=== PATIENT | female | born 1935 | race African-American/Black ===

== ENCOUNTER 2018-02-13 13:08 | Outpatient (CLI) | payer MEDICARE, BC | END 2018-02-13 13:09 | disposition home or self-care (01) | LOC: BICRAD 13:08 | PROVIDERS: ATTEND Internal Medicine | DX: M25.552 Pain in left hip (principal); M54.5 Low back pain; R05 Cough; M16.12 Unilateral primary osteoarthritis, left hip; M47.896 Other spondylosis, lumbar region; M43.16 Spondylolisthesis, lumbar region; R91.8 Other nonspecific abnormal finding of lung field | CPT/HCPCS: 71046; 72100 ==

== ENCOUNTER 2018-02-13 17:57 | Inpatient (IN) | payer MEDICARE, BC ==
[2018-02-13 19:11] LABS: #Eosinphils 0.2 thou/uL (0.0-0.7); #Lymphocytes 1.7 thou/uL (1.20-3.40); #Monocytes 0.5 thou/uL (0.11-0.59); #Neutrophils 6.2 thou/uL (1.40-6.50); %Basophils 0.2 % (0.0-1.0); %Eosinophils 2.3 % (0.0-10.0); %Neutrophils 71.5 % (42.0-75.0); Hemoglobin 10.5 g/dL (12.0-16.0); Mean Corpuscular HGB CONC 33.6 g/dL (32.0-36.0); Mean Corpuscular Hemoglobin 29.9 pg (27.0-31.0); Mean Corpuscular Volume 88.9 fL (78.0-98.0); Mean Platelet Volume 8.3 fL (7.4-10.4); Platelet Count 251 thou/uL (130-400); RBC Distribution Width 13.8 % (11.5-14.5); Red Blood Cell (RBC) Count 3.53 mill/uL (4.20-5.40); White Blood Cell (WBC) Count 8.6 thou/uL (4.8-10.8)
[2018-02-13 19:34] LABS: ALT (SGPT) 19 U/L (8-55); AST (SGOT) 18 U/L (5-34); Albumin 3.2 g/dL (3.4-4.8); Alkaline Phosphatase 66 U/L (40-150); Anion Gap 19 mmol/L (10-20); BUN (Urea Nitrogen) 27 mg/dL (9.8-20.1); Bilirubin, Total 1.1 mg/dL (0.2-1.2); Calc. Creatinine Clearance 0 mL/min (70-130); Calcium 9.5 mg/dL (7.8-10.44); Carbon Dioxide 19 mmol/L (23-31); Chloride 101 mmol/L (98-107); Estimated GFR-MDRD 39; Globulin 3.4 g/dL (2.4-3.5); Glucose 116 mg/dL (83-110); Potassium 3.6 mmol/L (3.5-5.1); Protein, Total 6.6 g/dL (6.0-8.3); Sodium 135 mmol/L (136-145)
[2018-02-13] MEDS ORDERED: cefTRIAXone\\ROCEPHIN 2 GM VIAL ONE (22:37)
[2018-02-13] MEDS ORDERED: Azithromycin 500 MG VIAL ONE (22:37)
--- NOTE | 2018-02-13 23:00 | CT ---
CT ABDOMEN AND PELVIS WITHOUT CONTRAST: 02/13/18 HISTORY: Left lower quadrant pain. FINDINGS: The absence of oral and IV contrast reduces the sensitivity of the exam particularly for evaluation o f solid organs and bowel. There are dependent changes in the lung bases. No free air or free fluid is seen in the abdomen or pe lvis. Calcified gallstones are seen. There are multiple calcified granulomas in the spleen. No calculi are noted in the kidneys, ureters or the urinary bladder. No hydroureteronephrosis is seen . There is a 3.5 cm exophytic low density mass arising from the inferior pole of the left kidney whic h does not meet all CT criteria for a simple cyst. Uterus is present. A normal appearing appendix is noted. No pericolonic inflammatory changes are seen . There are degenerative changes in the spine. Vascular calcifications are present without evidence f or aneurysmal dilatation of the abdominal aorta. IMPRESSION: 1. Cholelithiasis. 2. No CT evidence of urinary tract calculi or obstruction. 3. Calcified granulomas in the spleen. 4. 3.5 cm exophytic left renal mass. This should be evaluated with ultrasound. POS: RUSS
[2018-02-14] MEDS ORDERED: Ondansetron ODT 4 MG TAB SL PRN (01:16)
[2018-02-14] MEDS ORDERED: Ondansetron HCl/PF 4 MG/2 ML Vial IVP PRN ×2 (01:16→07:46)
[2018-02-14] MEDS ORDERED: Zolpidem Tartrate 5 MG TAB PO PRN (07:46)
[2018-02-14] MEDS ORDERED: Mag-Al 1200 mg/1200 mg/30 ML UDCUP PO PRN (07:46)
[2018-02-14] MEDS ORDERED: Senokot 8.6 MG TAB PO PRN (07:46)
[2018-02-14] MEDS ORDERED: Loratadine 10 MG TAB PO PRN (07:46)
[2018-02-14] MEDS ORDERED: HumaLOG 300 UNITS/3 ML VIAL SC PRN ×2 (07:46)
[2018-02-14] MEDS ORDERED: hydrALAZINE 20 MG/ML VIAL SLOW IVP PRN (07:46)
[2018-02-14] MEDS ORDERED: Milk Of Magnesia 30 ML UDCUP PO PRN (07:46)
[2018-02-14] MEDS ORDERED: Diabetic Tussin 200 MG/10 ML UDCUP PO PRN (07:46)
[2018-02-14] MEDS ORDERED: Artificial Tear Sol 15 ML BOT EA EYE PRN (07:46)
[2018-02-14] MEDS ORDERED: Sodium Chloride 0.65% Nasal 44 ML BOT EA NARE PRN (07:46)
[2018-02-14] MEDS ORDERED: Acetaminophen 325 MG TAB PO PRN (07:46)
[2018-02-14] MEDS ORDERED: Eucerin (Mineral Oil/Petrolatum,White) 30 gm Jar TOP PRN (07:46)
[2018-02-14] MEDS ORDERED: Dextrose 5% in Water 1,000 ML IV PRN (07:46)
[2018-02-14] MEDS ORDERED: Chloraseptic Spray 180 ml Bottle PO PRN (07:46)
[2018-02-14] MEDS ORDERED: HYDROcodone/Acetaminophen 5/325 mg Tablet PO PRN (07:46)
[2018-02-14] MEDS ORDERED: Dextrose 50% Abboject 50 ML SYRINGE SLOW IVP PRN (07:46)
[2018-02-14] MEDS ORDERED: Ondansetron ODT 4 MG TAB PO PRN (07:46)
[2018-02-14] MEDS ORDERED: Loperamide HCl 2 MG CAP PO PRN (07:46)
[2018-02-14] MEDS ORDERED: Allopurinol 300 MG TAB PO SCH ×2 (09:00→21:00)
[2018-02-14] MEDS: glipiZIDE 5 MG TAB PO SCH (09:23)
[2018-02-14] MEDS: Carvedilol 3.125 MG TAB PO SCH (09:25)
[2018-02-14] MEDS: metFORMIN 500 MG TAB PO SCH ×2 (09:25→16:56)
[2018-02-14] MEDS: Losartan 25 MG TAB PO SCH (09:26)
[2018-02-14] MEDS: Aspirin 81 mg Enteric Coated Tablet PO SCH (09:26)
[2018-02-14] MEDS: Torsemide 20 MG TAB PO SCH (09:27)
[2018-02-14] MEDS: Enoxaparin Sodium 30 MG/0.3 ML SYRINGE SC SCH (09:28)
[2018-02-14] MEDS: Stress 600 With Zinc 1 TAB PO SCH (09:30)
--- NOTE | 2018-02-14 11:06 | ULT ---
ULTRASOUND RETROPERITONEUM COMPLETE: (RENAL) 02/14/2018 HISTORY: An 82-year-old female with left renal mass. FINDINGS: There is an approximately 3.5 x 3 x 3 cm mass, exophytically protruding inferiorly and posteriorly fr om the lower pole cortex of the left kidney, corresponding to the mass found on the noncontrast CT of 02/13/2018. It has echogenicity very similar to that of adjacent normal renal parenchyma. Although the CT density was relatively low (15 HU), the color Doppler images demonstrate strong blood flow wi thin this mass, indicating that it is a solid rather than a complex cyst. The right kidney measures 10.5 x 5.5 x 5 cm. The left kidney measures 10 x 5.5 x 5.5 cm (not including the exophytic renal mass). No hydronephrosis bilaterally. Unremarkable appearance of urinary bladder. Incidental finding of multiple gallstones. IMPRESSION: 1. Left renal lower pole exophytic mass is a solid neoplasm, probably renal cell carcinoma. 2. Incidental finding of cholelithiasis. CODE T JN R POS: RUSS
[2018-02-14 11:50] VITALS: BMI 41.6
[2018-02-14 14:18] LABS: Bilirubin Negative (Negative); Blood, Urine Negative (Negative); Clarity CLEAR (Clear); Glucose, Urine (Dipstick) Negative (Negative); Leukocyte Trace (Negative); Nitrite Negative (Negative); Protein, Urine (Dipstick) Negative (Neg-Trace); Specific Gravity, Urine 1.004 (1.002-1.036); pH, Urine 6.5 (5.0-9.0)
[2018-02-14 14:20] LABS: Bacteria/HPF None Seen HPF (None Seen); Hyaline Casts/LPF 0-3 HYALINE CAST LPF (0-3 Hyaline); Pathc Cast-AUWi Flag 0.43 (0-2.49); RBC/HPF 0-3 HPF (0-3); Squamous Epithelial 0-3 HPF (0-3); WBC/HPF 0-3 HPF (0-3)
--- NOTE | 2018-02-14 15:23 | HP ---
PRIMARY CARE PHYSICIAN: Silva Espinal M.D. REASON FOR ADMISSION: Pneumonia, renal mass. HISTORY OF PRESENT ILLNESS: This is an 82-year-old female, who presented to emergency room with a co mplaint of generalized weakness. Patient reports that she is having cough for the last several days. She had outpatient basis chest x-ray, which showed pneumonia. The patient also reports intermitten t fever at home. She reports left-sided abdominal discomfort, which is getting worse with coughing. For the last couple of days, patient was also having diarrhea and because of that she got dehydrated , and subsequently, she was feeling extreme fatigue. She denies any sick exposures. She denies any antibiotic exposures. She denies any melena or hematochezia. She denies any UTI symptoms. She micaela es any headache. She denies any sore throat. She denies any upper respiratory infection. In the emergency room, the patient was having vague abdominal discomfort and that is why CT abdomen a nd pelvis was done, which showed left renal mass. Patient's laboratory parameters wer unremarkable. The patient was admitted already from the emergency room. For pneumonia, the patient was started on Rocephin and azithromycin. The patient was still having pain in her left side of the lumbar region. REVIEW OF SYSTEMS: The following complete review of systems was negative, unless otherwise mentioned in the HPI or below: Constitutional: Weight loss or gain, ability to conduct usual activities. Sk in: Rash, itching. Eyes: Double vision, pain. ENT/Mouth: Nose bleeding, neck stiffness, pain, te nderness. Cardiovascular: Palpitations, dyspnea on exertion, orthopnea. Respiratory: Shortness of breath, wheezing, cough, hemoptysis, fever, or night sweats. Gastrointestinal: Poor appetite, abdo cathie pain, heartburn, nausea, vomiting, constipation, or diarrhea. Genitourinary: Urgency, frequen cy, dysuria, nocturia. Musculoskeletal: Pain, swelling. Neurologic/Psychiatric: Anxiety, depressi on. Allergy/Immunologic: Skin rash, bleeding tendency. Please see my HPI for pertinent positive an d negative. All other review of systems reviewed and negative except as mentioned in the HPI. ALLERGIES: LEVOFLOXACIN. CURRENT HOME MEDICATIONS: Allopurinol 300 mg p.o. daily, aspirin 81 mg p.o. daily, Coreg 3.125 mg p. o. daily, vitamin D3 5000 units p.o. daily, folic acid with vitamin B complex 1 tablet p.o. daily, gl ipizide 10 mg daily, fish oil 1 capsule daily, losartan 50 mg p.o. daily, metformin 500 mg p.o. b.i.d ., Zocor 40 mg p.o. at bedtime, torsemide 20 mg p.o. daily. PAST MEDICAL HISTORY: Diabetes, type 2; hypertension; dyslipidemia; gout; obesity. PAST SURGICAL HISTORY: Sebaceous cyst removed from her back, right rotator cuff repair, microdiscect vishal for L5-S1 by Dr. Cervantes, cataract surgery. PAST PSYCHIATRIC HISTORY: Reviewed and negative. SOCIAL HISTORY: Patient lives at home. She is a former smoker; she quit smoking more than 10 years ago. She denies any alcohol or other illicit drug abuse. 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 FAMILY HISTORY: No strong family history of premature coronary artery disease, stroke, or cancer. EMERGENCY ROOM COURSE: Patient has received Rocephin, azithromycin, IV fluid. PHYSICAL EXAMINATION: VITAL SIGNS: On arrival, blood pressure 137/65, pulse 79, respiratory rate 15, temperature 96.0, sat uration 99% on room air, weight 106.1 kilograms. GENERAL: The patient is currently alert, awake, in no obvious acute distress. HEENT: Head: Normocephalic, atraumatic. Eyes: Pupils round, reactive to light. Extraocular muscl e intact. ENT: Oropharynx within normal limits. Moist mucous membranes, no oral lesion, no pharyng eal erythema, no exudate. NECK: Supple, no JVD, no thyromegaly, no carotid bruit. LUNGS: Clear to auscultation without any rhonchi or rales. CARDIAC: S1 and S2 appears regular. No murmur, no gallop, no rub. ABDOMEN: Soft, bowel sounds present, nontender, nondistended. No organomegaly, no mass, no suprapub ic tenderness. Patient has vague discomfort on left lower quadrant. EXTREMITIES: Lower extremities, trace edema noted. Good distal pulsation. SKIN: No skin rash. HEMATOLOGICAL SYSTEM: No lymphadenopathy. PSYCHIATRIC: Normal affect. SIGNIFICANT LABORATORY DATA: CT of the abdomen and pelvis showed cholelithiasis, calcified granuloma in spleen, 3.5 cm exophytic left renal mass. Outpatient chest x-ray showed left upper lobe infiltra tion. CBC: WBC 8.6, hemoglobin 10.5, platelets 251. BMP: Sodium 135, potassium 3.6, chloride 101, carbon dioxide 19, anion gap 19, BUN 27, creatinine 1.56, glucose 116, calcium 9.5. Lactic acid 1.2 . LFT: AST 18, ALT 19, alkaline phosphatase 66, albumin 3.2. Urinalysis: Leukocyte esterase trace . ASSESSMENT AND PLAN: 1. Community-acquired pneumonia. The patient is kept on Rocephin and azithromycin. We will continu e with 2 antibiotic therapy upon discharge. We will consider changing to Omnicef for another 5 days. 2. Left renal mass. Ultrasound of kidney obtained is suspicious for renal cell carcinoma. Urology will be consulted. Urinalysis will be checked. 3. Chronic kidney disease, stage 3. We will monitor renal function and avoid nephrotoxin agent, mos t likely related with diabetic nephropathy. 4. Diabetes, type 2, currently well controlled. Continue glipizide 10 mg daily, metformin 500 mg p. o. b.i.d. 5. Hypertension. Continue Cozaar 50 mg p.o. daily. 6. Dyslipidemia. Continue Zocor 40 mg p.o. at bedtime. 7. Gout. We will continue allopurinol 300 mg p.o. daily. 8. Morbid obesity with BMI 41. Dietary education given. Weight loss education given. Healthy life style measures discussed with the patient. 9. Anemia, normocytic, normochromic. Patient will continue multivitamin therapy upon discharge. 10. Deep venous thrombosis prophylaxis, Lovenox 30 mg subcutaneously daily. 11. Gastrointestinal prophylaxis, Protonix 40 mg p.o. daily. CODE STATUS: The patient is FULL CODE. Patient does not have any surrogate decision maker. Disposition plan based on clinical course. We are expecting patient's stay in hospital more than 2 m idnights. Plan of care discussed with the patient and family member at bedside.
[2018-02-14] MEDS ORDERED: Atorvastatin Calcium 20 MG TAB PO SCH (21:00)
[2018-02-14] MEDS ORDERED: cefTRIAXone\\ROCEPHIN 2 GM in Sodium Chloride 0.9% 100 ML IVPB SCH (23:00)
[2018-02-15] MEDS ORDERED: Azithromycin 500 MG in Sodium Chloride 0.9% 250 ML 250 ML IVPB SCH (00:01)
[2018-02-15 05:12] LABS: ALT (SGPT) 16 U/L (8-55); AST (SGOT) 14 U/L (5-34); Albumin 2.5 g/dL (3.4-4.8); Alkaline Phosphatase 50 U/L (40-150); Anion Gap 14 mmol/L (10-20); BUN (Urea Nitrogen) 25 mg/dL (9.8-20.1); Bilirubin, Total 0.4 mg/dL (0.2-1.2); Calc. Creatinine Clearance 55 mL/min (70-130); Calcium 8.9 mg/dL (7.8-10.44); Carbon Dioxide 23 mmol/L (23-31); Chloride 107 mmol/L (98-107); Estimated GFR-MDRD 45; Globulin 2.8 g/dL (2.4-3.5); Glucose 100 mg/dL (83-110); Potassium 3.6 mmol/L (3.5-5.1); Protein, Total 5.3 g/dL (6.0-8.3); Sodium 140 mmol/L (136-145)
[2018-02-15 07:00] LABS: Band 3 % (5-11); Hemoglobin 9.6 g/dL (12.0-16.0); Lymphocytes 30 % (21-51); MDiff Complete? YES; Mean Corpuscular HGB CONC 34.3 g/dL (32.0-36.0); Mean Corpuscular Hemoglobin 30.1 pg (27.0-31.0); Mean Corpuscular Volume 87.8 fL (78.0-98.0); Mean Platelet Volume 8.3 fL (7.4-10.4); Monocytes 5 % (0-10); Neutrophil 62 % (42-75); Nucleated RBC 2 % (0); Platelet Count 269 thou/uL (130-400); RBC Distribution Width 13.8 % (11.5-14.5); Red Blood Cell (RBC) Count 3.18 mill/uL (4.20-5.40); White Blood Cell (WBC) Count 7.5 thou/uL (4.8-10.8)
[2018-02-15] MEDS: Aspirin 81 mg Enteric Coated Tablet PO SCH (08:57)
[2018-02-15] MEDS: Torsemide 20 MG TAB PO SCH (08:57)
[2018-02-15] MEDS: metFORMIN 500 MG TAB PO SCH (08:57)
[2018-02-15] MEDS: glipiZIDE 5 MG TAB PO SCH (08:57)
[2018-02-15] MEDS: Carvedilol 3.125 MG TAB PO SCH (08:58)
[2018-02-15] MEDS: Stress 600 With Zinc 1 TAB PO SCH (08:59)
[2018-02-15] MEDS: Enoxaparin Sodium 30 MG/0.3 ML SYRINGE SC SCH (09:00)
[2018-02-15 11:04] VITALS: BP 128/75; TEMP 97.2
--- NOTE | 2018-02-15 12:02 | PDOC.PN ---
- Subjective Encounter Start Date: 02/15/18 Encounter Start Time: 08:40 -: old records requested/rev Patient seen and examined. No new complaints. No overnight events - Objective MAR Reviewed: Yes Vital Signs & Weight: Vital Signs (12 hours) Temp Pulse Resp BP Pulse Ox 02/15/18 11:03 97.2 F L 75 16 128/75 96 02/15/18 08:00 97.7 F 61 18 94 L 02/15/18 07:42 97.7 F 61 18 106/69 94 L Weight Admit Weight 235 lb Weight 235 lb Result Diagrams: 02/15/18 04:13 02/15/18 04:13 Additional Labs: Accuchecks 02/15/18 02/15/18 02/14/18 11:02 06:01 20:09 POC Glucose 201 H 85 135 H 02/14/18 16:43 POC Glucose 214 H Phys Exam - Physical Examination Constitutional: NAD HEENT: PERRLA, moist MMs, sclera anicteric Neck: no JVD, supple Respiratory: no wheezing, no rales, no rhonchi Cardiovascular: RRR, no significant murmur, no rub Gastrointestinal: soft, non-tender, no distention, positive bowel sounds Musculoskeletal: no edema, pulses present Neurological: non-focal, normal sensation, moves all 4 limbs Lymphatic: no nodes Psychiatric: normal affect, A&O x 3 Skin: no rash, normal turgor Dx/Plan (1) Community acquired bacterial pneumonia Code(s): J15.9 - UNSPECIFIED BACTERIAL PNEUMONIA Status: Acute (2) Left renal mass Code(s): N28.89 - OTHER SPECIFIED DISORDERS OF KIDNEY AND URETER Status: Acute (3) Anemia, normocytic normochromic Code(s): D64.9 - ANEMIA, UNSPECIFIED Status: Chronic (4) CKD (chronic kidney disease) stage 3, GFR 30-59 ml/min Code(s): N18.3 - CHRONIC KIDNEY DISEASE, STAGE 3 (MODERATE) Status: Chronic (5) Diabetes type 2, controlled Code(s): E11.9 - TYPE 2 DIABETES MELLITUS WITHOUT COMPLICATIONS Status: Chronic (6) Dyslipidemia Code(s): E78.5 - HYPERLIPIDEMIA, UNSPECIFIED Status: Chronic (7) Hypertension Code(s): I10 - ESSENTIAL (PRIMARY) HYPERTENSION Status: Chronic (8) Morbid obesity with BMI of 40.0-44.9, adult Code(s): E66.01 - MORBID (SEVERE) OBESITY DUE TO EXCESS CALORIES; Z68.41 - BODY MASS INDEX (BMI) 40.0-44.9, ADULT Status: Chronic - Plan cont current plan of care, continue antibiotics * continue rocephin and azithromycin * urology evaluated and will need outpt follow up * continue PT * medication reviewed as below * symptomatic treatment * expecting discharge soon. Review of Systems - Review of Systems Eyes: negative: Pain, Vision Change, Conjunctivae Inflammation, Eyelid Inflammation, Redness, Other ENT: negative: Ear Pain, Ear Discharge, Nose Pain, Nose Discharge, Nose Congestion, Mouth Pain, Mouth Swelling, Throat Pain, Throat Swelling, Other Respiratory: negative: Cough, Dry, Shortness of Breath, Hemoptysis, SOB with Excertion, Pleuritic Pain, Sputum, Wheezing Cardiovascular: negative: chest pain, palpitations, orthopnea, paroxysmal nocturnal dyspnea, edema, light headedness, other Gastrointestinal: negative: Nausea, Vomiting, Abdominal Pain, Diarrhea, Constipation, Melena, Hematochezia, Other Genitourinary: negative: Dysuria, Frequency, Incontinence, Hematuria, Retention , Other Musculoskeletal: negative: Neck Pain, Shoulder Pain, Arm Pain, Back Pain, Hand Pain, Leg Pain, Foot Pain, Other Skin: negative: Rash, Lesions, Liu, Bruising, Other - Medications/Allergies Allergies/Adverse Reactions: Allergies Allergy/AdvReac Type Severity Reaction Status Date / Time levofloxacin [From Levaquin] Allergy Verified 02/14/18 01:20 Medications: Current Medications Acetaminophen (Tylenol) 650 mg PO Q4H PRN PRN Reason: Headache/Fever or Pain Hydrocodone Bitart/Acetaminophen (Newell 5/325) 1 tab PO Q4H PRN PRN Reason: Moderate Pain (4-6) Last Admin: 02/15/18 00:33 Dose: 1 tab Al Hydroxide/Mg Hydroxide (Maalox) 30 ml PO Q6H PRN PRN Reason: Heartburn or Indigestion Albuterol/Ipratropium (Duoneb) 3 ml NEB L2PB-LS PRN PRN Reason: SOB &/or Wheezing Allopurinol (Zyloprim) 300 mg PO HS AMANDO Last Admin: 02/14/18 21:29 Dose: 300 mg Artificial Tears (Tears Renewed 15ml Bottle) 0 drop EA EYE PRN PRN PRN Reason: Dry Eyes Aspirin (Ecotrin) 81 mg PO DAILY [facility] Last Admin: 02/15/18 08:57 Dose: 81 mg Atorvastatin Calcium (Lipitor) 20 mg PO [facility] Last Admin: 02/14/18 21:31 Dose: 20 mg Carvedilol (Coreg) 3.125 mg PO DAILY [facility] Last Admin: 02/15/18 08:58 Dose: 3.125 mg Cholecalciferol (Vitamin D3) 5,000 units PO [facility] Last Admin: 02/14/18 21:29 Dose: 5,000 units Dextrose/Water (Dextrose 50%) 25 gm SLOW IVP PRN PRN PRN Reason: Hypoglycemia Enoxaparin Sodium (Lovenox) 30 mg SC 0900 [facility] Last Admin: 02/15/18 09:00 Dose: Not Given Glipizide (Glucotrol) 10 mg PO DAILY-[facility] Last Admin: 02/15/18 08:57 Dose: 10 mg Glucagon (Glucagon) 1 mg IM PRN PRN PRN Reason: Hypoglycemia Guaifenesin (Robitussin Sf) 200 mg PO Q4H PRN PRN Reason: Cough Hydralazine HCl (Apresoline) 10 mg SLOW IVP Q4H PRN PRN Reason: Systolic BP > 180 Azithromycin 500 mg/ Sodium (Chloride) 250 mls @ 250 mls/hr IVPB Q24HR [facility] Last Admin: 02/14/18 23:13 Dose: 250 mls Ceftriaxone Sodium 2 gm/ (Sodium Chloride) 100 mls @ 200 mls/hr IVPB Q24HR [facility] Last Admin: 02/14/18 22:46 Dose: 100 mls Dextrose/Water (D5w) 1,000 mls @ 0 mls/hr IV .Q0M PRN; As Directed PRN Reason: Hypoglycemia Insulin Human Lispro (Humalog) 0 units SC .MODERATE SLIDING SC PRN PRN Reason: Moderate Correctional Scale Insulin Human Lispro (Humalog) 0 units SC .BEDTIME SLIDING SC PRN PRN Reason: Bedtime Correctional Scale Loperamide HCl (Imodium) 2 mg PO PRN PRN PRN Reason: Diarrhea/Loose Stools Loratadine (Claritin) 10 mg PO DAILYPRN PRN PRN Reason: Sinus Symptoms Losartan Potassium (Cozaar) 50 mg PO DAILY [facility] Last Admin: 02/14/18 09:26 Dose: 50 mg Magnesium Hydroxide (Milk Of Magnesium) 30 ml PO DAILYPRN PRN PRN Reason: Constipation Metformin HCl (Glucophage) 500 mg PO BID-[facility] Last Admin: 02/15/18 08:57 Dose: 500 mg Mineral Oil/White Petrolatum (Eucerin Cream) 0 gm TOP BIDPRN PRN PRN Reason: Dry Skin Multivitamins/Zinc (Stress 600 With Zinc) 1 tab PO DAILY [facility] Last Admin: 02/15/18 08:59 Dose: Not Given Ondansetron HCl (Zofran Odt) 4 mg PO Q6H PRN PRN Reason: Nausea/Vomiting Ondansetron HCl (Zofran) 4 mg IVP Q6H PRN PRN Reason: Nausea/Vomiting Pantoprazole Sodium (Protonix) 40 mg PO DAILY [facility] Last Admin: 02/15/18 08:57 Dose: 40 mg Phenol (Chloraseptic [place] 180 Ml Bot) 0 ml PO PRN PRN PRN Reason: Sore Throat Senna (Senokot) 2 tab PO HSPRN PRN PRN Reason: Constipation Sodium Chloride ([place] Nasal [place] 0.65%) 0 ml EA NARE QIDPRN PRN PRN Reason: Nasal Congestion Torsemide (Demadex) 20 mg PO DAILY [facility] Last Admin: 02/15/18 08:57 Dose: 20 mg Zolpidem Tartrate (Ambien) 5 mg PO HSPRN PRN PRN Reason: Insomnia
[2018-02-15] MEDS: Losartan 25 MG TAB PO SCH (12:22)
--- NOTE | 2018-02-15 14:15 | DIS ---
DATE OF ADMISSION: 02/14/2018 DATE OF DISCHARGE: 02/15/2018 PRIMARY CARE PHYSICIAN: Silva Espinal M.D. DISCHARGE DISPOSITION: Home. PRIMARY DISCHARGE DIAGNOSES: Left renal mass, community-acquired pneumonia. SECONDARY DISCHARGE DIAGNOSES: Anemia, normocytic-normochromic; chronic kidney disease, stage 3; shoshana betes, type 2; hypertension; dyslipidemia; obesity with BMI 41. PRIMARY PROCEDURE/OPERATION: None. RADIOLOGICAL INVESTIGATION: CT of the abdomen and pelvis showed a left renal mass. Renal ultrasound showed left renal mass. SIGNIFICANT LABORATORIES: WBC 7.5, hemoglobin 9.6, platelets 269. Sodium 140, potassium 3.6, BUN 25 , creatinine 1.36, calcium 8.9. LFT normal. Urinalysis normal. DISCHARGE MEDICATIONS: Omnicef 300 mg p.o. b.i.d. for 7 days, allopurinol 300 mg p.o. daily, aspirin 81 mg p.o. daily, Coreg 3.125 mg p.o. daily, vitamin D3 5000 units p.o. daily, folic acid with vitam in B complex 1 tablet p.o. daily, glipizide 10 mg daily, losartan 50 mg p.o. daily, metformin 500 mg p.o. b.i.d., Zocor 40 mg p.o. at bedtime, torsemide 20 mg p.o. daily. CONTRAINDICATIONS: None. CODE STATUS: FULL CODE. INPATIENT CONSULTANTS: Dr. Ta, urologist, was consulted. TEST RESULTS PENDING ON DISCHARGE: None. ALLERGIES: LEVOFLOXACIN. DISCHARGE PLAN: Post hospital, the patient will follow up with primary care physician. The patient is advised to follow up with Dr. Ta as instructed. HOSPITAL COURSE: This is an 82-year-old female, who was admitted by me. Please see my HPI for furth er details. She had outpatient basis chest x-ray, which showed left upper lobe infiltration. She wa s having respiratory symptoms. She was admitted to medical floor for pneumonia. She was treated wit h Rocephin and azithromycin. She was also complaining of abdominal pain in the emergency room, and t hat is why she had CT abdomen and pelvis, which showed renal mass. Subsequently, we did renal ultras ound that also consistent with solid mass and suspicious for renal cell carcinoma. That is why we co nsulted urologist. Urologist recommended outpatient followup and treatment decision as an outpatient basis after treatment for pneumonia. The patient significantly improved clinically and she wanted t o go home today. On discharge, we changed to Omnicef. The patient is seen and examined at bedside t josefa. Please see my progress note from today for further detail. The patient is medically stable fo r discharge today.
--- NOTE | 2018-02-15 14:59 | CON ---
DATE OF CONSULTATION: 02/14/2018 REASON FOR CONSULTATION: Renal mass. HISTORY OF PRESENT ILLNESS: Ms. Glass is an 82-year-old female who was admitted today, 02/14/2018, with complaints of generalized weakness. She has also had several weeks' history of left-sided back pain. She has also had a cough for that period of time which has been worsening. She underwent a est x-ray as an outpatient demonstrated findings consistent with pneumonia. For that reason, she was sent to the emergency room. During evaluation in the emergency room, she underwent imaging which in cluded CT scan and she has also had a renal ultrasound since admission. These studies demonstrate a 3 cm lesion in the left kidney. There is no hydronephrosis or stones. She denies any prior urologic history. She denies any dysuria or hematuria. As mentioned above, she has had back pain for severa l weeks. She also has a prior history of spine disease having had spine surgery in the past. She do es admit to intermittent back pain for years. PAST MEDICAL HISTORY: Includes type 2 diabetes, elevated cholesterol, gout, obesity, and hypertensio n. CURRENT MEDICATIONS: Metformin 500 mg, furosemide 20 mg p.o. daily, Zocor 40 mg p.o. nightly, allopu rinol 300 mg daily, aspirin 81 mg daily, Coreg 3.125 mg p.o. daily, vitamin D, folic acid, vitamin B, glipizide 10 mg daily, fish oil, losartan 50 mg p.o. daily. ALLERGIES: LEVAQUIN causes joint pain. SOCIAL HISTORY: She lives at home. She quit smoking over 10 years ago. She denies excessive alcoho l use. She has a supportive daughter who is with her in the room now. PAST SURGICAL HISTORY: Include L5-S1 disk surgery, cataract surgery, removal of sebaceous cyst from her back, and right-sided rotator cuff repair. FAMILY HISTORY: Noncontributory. REVIEW OF SYSTEMS: Respiratory: She has had a cough as mentioned in history of present illness. Ge neral: No weight loss or gain. Cardiovascular: Denies palpitations or dyspnea on exertion. Gastro intestinal: Denies chronic constipation or diarrhea. Genitourinary: Please see history of present illness. Psychiatric: Denies anxiety or depression. PHYSICAL EXAMINATION: GENERAL: She is awake and alert. She is in no distress. HEENT: Normocephalic, atraumatic. NECK: Supple, without masses. CHEST: Clear to auscultation. CARDIOVASCULAR: Regular rate and rhythm. ABDOMEN: Soft, nontender, no palpable masses. Liver and spleen are palpable. No abdominal tenderne ss noted. EXTREMITIES: No edema. IMAGING: CT scan demonstrates a 3.5 cm exophytic left renal mass arising from the inferior pole of t he left kidney. Ultrasound, a non-solid nature of the mass confirmed. LABORATORY DATA: Hemoglobin 10.5, hematocrit 31.4. Chemistry: Sodium 140, potassium 3.6, chloride 107, bicarbonate 23, BUN 25, creatinine 1.36, glucose 135. IMPRESSION: Ms. Glass is an 82-year-old female with a left renal mass found incidentally. It is no t likely the source of her back pain. The mass is small and it appears to be confined to the kidney. There is no evidence of metastatic disease. We have discussed the nature of this finding. I have recommended that she receive a followup in our office and will most likely require a surgical therapy for presumed renal cancer. She understands that this mass, although not proven to be renal cancer, is likely to be renal cancer and as such, we do recommend treating it as such. RECOMMENDATIONS: Follow up after discharge in our office.
== END 2018-02-15 14:40 | disposition home or self-care (01) | DRG 194 ==
LOC: ERS 17:57 → T4-A 22:20 → OBSVTOIN 02-14 07:46
PROVIDERS: ADMIT Hospitalist; ATTEND Hospitalist
DX: J15.9 Unspecified bacterial pneumonia (principal); Z68.41 Body mass index [BMI] 40.0-44.9, adult; N28.89 Other specified disorders of kidney and ureter; Z79.82 Long term (current) use of aspirin; E78.5 Hyperlipidemia, unspecified; M10.9 Gout, unspecified; Z87.891 Personal history of nicotine dependence; N18.3 Chronic kidney disease, stage 3 (moderate); I12.9 Hypertensive chronic kidney disease with stage 1 through stage 4 chronic kidney disease, or unspecified chronic kidney disease; E11.22 Type 2 diabetes mellitus with diabetic chronic kidney disease; E66.01 Morbid (severe) obesity due to excess calories; D64.9 Anemia, unspecified; E78.00 Pure hypercholesterolemia, unspecified; Z79.84 Long term (current) use of oral hypoglycemic drugs
CPT/HCPCS: 36415; 36416; 71046; 72100; 74176; 76770; 80053; 80061; 81001; 83605; 84443; 85025; 85652; 86140; G8978-GP-CK; G8979-GP-CI; G8987-GO-CI; G8988-GO-CI; G8989-GO-CI; J0456; J0696; J1650; J7050

== ENCOUNTER 2018-02-25 12:10 | Outpatient (CLI) | payer MEDICARE, BC | END 2018-02-25 12:11 | disposition home or self-care (01) | LOC: BICRAD 12:10 | PROVIDERS: ATTEND Internal Medicine | DX: J18.9 Pneumonia, unspecified organism (principal); R91.8 Other nonspecific abnormal finding of lung field | CPT/HCPCS: 71046 ==

== ENCOUNTER 2018-03-27 08:33 | Outpatient (CLI) | payer MEDICARE, BC ==
--- NOTE | 2018-03-27 09:41 | RAD ---
PA AND LATERAL VIEWS CHEST: Date: 03/27/18 HISTORY: Dyspnea. FINDINGS: Comparison made with exam of 07/20/14. The heart size is normal. The aorta is tortuous. The lungs are expanded without focal areas of consol idation, pneumothoraces, or pleural effusions. There are degenerative changes in the spine. There are postop changes of right rotator cuff repair. IMPRESSION: No acute process. POS: HAYDEN
== END 2018-03-27 08:34 | disposition home or self-care (01) ==
LOC: RAD 08:33
PROVIDERS: ATTEND Internal Medicine Critical Care Medicine
DX: R06.00 Dyspnea, unspecified (principal)
CPT/HCPCS: 71046

== ENCOUNTER 2018-05-28 11:07 | Outpatient (CLI) | payer MEDICARE, BC ==
--- NOTE | 2018-05-28 13:01 | RAD ---
PA AND LATERAL CHEST: HISTORY: Dyspnea. COMPARISON: 03/27/2018 FINDINGS: The heart size is normal. The aorta is tortuous. The lungs are well expanded with stable mild chron ic changes. No focal areas of consolidation, pneumothoraces, or pleural effusions are seen. There a re postop changes of a right rotator cuff repair. Degenerative changes are present in the spine. IMPRESSION: No acute process. POS: RUSS
== END 2018-05-28 11:08 | disposition home or self-care (01) ==
LOC: RAD 11:07
PROVIDERS: ATTEND Internal Medicine Critical Care Medicine
DX: R06.00 Dyspnea, unspecified (principal)
CPT/HCPCS: 71046

== ENCOUNTER 2018-12-17 09:24 | Outpatient (CLI) | payer MEDICARE, BC ==
--- NOTE | 2018-12-17 09:40 | RAD ---
EXAM: Chest 2 views: HISTORY: Dyspnea COMPARISON: 05/28/2018 FINDINGS: Stable postop changes right shoulder Heart size:Within normal limits. Lungs:Clear of acute process. Atherosclerotic changes of the aorta. No confluent pneumonia, overt edema, pleural effusion, pneumothorax, or other significant acute proce ss. IMPRESSION: Stable-appearing chest. Atherosclerosis of the aorta. No acute intrathoracic disease.
== END 2018-12-17 09:25 | disposition home or self-care (01) ==
LOC: RAD 09:24
PROVIDERS: ATTEND Internal Medicine Critical Care Medicine
DX: R06.00 Dyspnea, unspecified (principal); I70.0 Atherosclerosis of aorta
CPT/HCPCS: 71046

== ENCOUNTER 2020-01-28 12:04 | Outpatient (CLI) | payer MEDICARE, BC ==
--- NOTE | 2020-01-28 12:31 | RAD ---
EXAM: Chest 2 views: HISTORY: Dyspnea COMPARISON: 08/11/2014 FINDINGS: There is a normal-sized cardiomediastinal silhouette. Atherosclerotic calcifications are seen in the aorta. There is no evidence of consolidation, mass, or pleural effusion. Degenerative changes are seen in the spine. IMPRESSION: No evidence of acute cardiopulmonary disease
== END 2020-01-28 12:05 | disposition home or self-care (01) ==
LOC: BICRAD 12:04
PROVIDERS: ATTEND Internal Medicine Critical Care Medicine
DX: R06.00 Dyspnea, unspecified (principal)
CPT/HCPCS: 71046